=== PATIENT | female | born 1955 | race Caucasian/White ===

== ENCOUNTER → 2016-11-19 | Outpatient (CLI) | payer OTHER ==
[~2016-11-19] VITALS: Ht 172.7 cm; Wt 82.0 kg
[~2016-11-19] MED LIST: ADVA100A INH; ALBUAER3 INH; INSULIN HUMAN REGULAR 1,000 UNITS/10 ML VIAL SQ PRN; LACTATED RINGER'S 1000 ML IV SCH; LISI10TA3 PO; METOPROLOL TARTRATE 25 MG TAB PO PRN; MULTTAB67 PO; PROPOFOL 200 MG/20 ML AMP IV ONE; ROSU5 PO; SODIUM CHLORID 0.9% 500 ML IV SCH
[2016-11-19 09:23] VITALS: BP 137/81; PULSE 58; RESP 16; TEMP 98.1; O2SAT 95
[2016-11-19 12:40] VITALS: TEMP 97.6
[2016-11-19 13:00] VITALS: BP 111/66; PULSE 63; RESP 16; O2SAT 95
--- NOTE | 2016-11-19 18:15 | EKG ---
Date Performed: 11/19/2016 Time Performed: 09:46:22 PTAGE: 60 years EKG: SINUS BRADYCARDIA SEPTAL MYOCARDIAL INFARCTION , OF INDETERMINATE AGE When compared to prev ious tracing, sinus rate is slower. ABNORMAL ECG PREVIOUS TRACING : 08/09/2007 07.33 DOCTOR: Dev Guevara Interpretating Date/Time 11/19/2016 18:13:38
== END ==
LOC: HEND 08:33
PROVIDERS: ATTEND Internal Medicine Gastroenterology
DX: Z12.11 Encounter for screening for malignant neoplasm of colon (principal); Z80.0 Family history of malignant neoplasm of digestive organs; K57.30 Diverticulosis of large intestine without perforation or abscess without bleeding; K64.4 Residual hemorrhoidal skin tags; K64.8 Other hemorrhoids; K20.9 Esophagitis, unspecified; K44.9 Diaphragmatic hernia without obstruction or gangrene; R10.13 Epigastric pain; R68.81 Early satiety; K76.89 Other specified diseases of liver; K59.09 Other constipation; R14.0 Abdominal distension (gaseous); I10 Essential (primary) hypertension
CPT/HCPCS: 43239; 45378; 88305; 88312; 93005; 99156; 99157; J7120

== ENCOUNTER → 2017-01-27 | Outpatient (CLI) | payer OTHER ==
[~2017-01-27] MED LIST changes: -INSULIN HUMAN REGULAR 1,000 UNITS/10 ML VIAL SQ PRN; -LACTATED RINGER'S 1000 ML IV SCH; -METOPROLOL TARTRATE 25 MG TAB PO PRN; -PROPOFOL 200 MG/20 ML AMP IV ONE; -SODIUM CHLORID 0.9% 500 ML IV SCH
[2017-01-27 08:31] LABS: AUTOMATED NEUTROPHIL # 2.3 TH/MM3 (1.8-7.7); BASOPHIL % 0.6 % (0.0-2.0); EOSINOPHIL # 0.1 TH/MM3 (0-0.4); EOSINOPHIL % 1.5 % (0.0-4.0); HEMATOCRIT 37.1 % (35.0-46.0); HEMO FLAGS DIFF FINAL; LYMPH % 33.6 % (9.0-44.0); LYMPHOCYTE # 1.4 TH/MM3 (1.0-4.8); MEAN CELL VOLUME 86.8 FL (80.0-100.0); MEAN CORPUSCULAR HEMOGLOBIN 29.8 PG (27.0-34.0); MEAN CORPUSCULAR HGB CONC 34.3 % (32.0-36.0); MONO % 11.1 % (0.0-8.0); NEUT % 53.2 % (16.0-70.0); PLATELET COUNT 177 TH/MM3 (150-450); RED BLOOD COUNT 4.27 MIL/MM3 (4.00-5.30); RED CELL DISTRIBUTION WIDTH 12.7 % (11.6-17.2); WHITE BLOOD COUNT 4.3 TH/MM3 (4.0-11.0)
[2017-01-27 09:09] LABS: ALKALINE PHOSPHATASE 46 U/L (45-117); ALT (GPT) 21 U/L (10-53); ANION GAP 7 MEQ/L (5-15); AST (GOT) 16 U/L (15-37); BICARBONATE 29.8 MEQ/L (21.0-32.0); BLOOD UREA NITROGEN 15 MG/DL (7-18); CHLORIDE 101 MEQ/L (98-107); GLOMERULAR FILTRATION RATE 87 ML/MIN (>89); GLUCOSE,FASTING 91 MG/DL (74-99); HDL CHOLESTEROL 81.4 MG/DL (40.0-60.0); LDL CHOLESTEROL 91 MG/DL (0-99); POTASSIUM 4.2 MEQ/L (3.5-5.1); SODIUM (NA) 138 MEQ/L (136-145); TOTAL BILIRUBIN ADULT 0.6 MG/DL (0.2-1.0)
== END ==
LOC: CLAB 08:04
PROVIDERS: ATTEND Family Medicine
DX: E78.5 Hyperlipidemia, unspecified (principal); I10 Essential (primary) hypertension; D72.819 Decreased white blood cell count, unspecified
CPT/HCPCS: 36415; 80053; 80061; 84436; 84443; 85025

== ENCOUNTER → 2017-02-04 | Outpatient (CLI) | payer OTHER ==
--- NOTE | 2017-02-16 08:51 | RSPPFT ---
DATE OF PROCEDURE: 02/04/17 COMMENTS: Spirometry with FVC of 2.9, FEV1 of 2.0 FEV1/FVC ratio at 68%. Slow vital capacity is 83% of predicted. TLC is 97%. Diffusion capacity is normal. IMPRESSION: 1. Moderate airways obstruction. 2. Non-significant response to acutely inhaled bronchodilator. 3. No evidence of airways restriction. 4. Normal diffusion capacity.
== END ==
LOC: HRSP 08:05
PROVIDERS: ATTEND Family Medicine
DX: J45.909 Unspecified asthma, uncomplicated (principal)
CPT/HCPCS: 94060; 94726; 94729

== ENCOUNTER → 2017-07-21 | Outpatient (CLI) | payer OTHER ==
[2017-07-21 09:19] LABS: AUTOMATED NEUTROPHIL # 2.1 TH/MM3 (1.8-7.7); BASOPHIL % 0.8 % (0.0-2.0); EOSINOPHIL # 0.1 TH/MM3 (0-0.4); EOSINOPHIL % 2.4 % (0.0-4.0); HEMATOCRIT 39.3 % (35.0-46.0); HEMO FLAGS DIFF FINAL; LYMPH % 36.6 % (9.0-44.0); LYMPHOCYTE # 1.6 TH/MM3 (1.0-4.8); MEAN CELL VOLUME 89.1 FL (80.0-100.0); MEAN CORPUSCULAR HEMOGLOBIN 30.1 PG (27.0-34.0); MEAN CORPUSCULAR HGB CONC 33.8 % (32.0-36.0); MONO % 11.4 % (0.0-8.0); NEUT % 48.8 % (16.0-70.0); PLATELET COUNT 179 TH/MM3 (150-450); RED BLOOD COUNT 4.42 MIL/MM3 (4.00-5.30); RED CELL DISTRIBUTION WIDTH 12.8 % (11.6-17.2); WHITE BLOOD COUNT 4.3 TH/MM3 (4.0-11.0)
[2017-07-21 10:45] LABS: ANION GAP 6 MEQ/L (5-15); AST (GOT) 15 U/L (15-37); BICARBONATE 29.3 MEQ/L (21.0-32.0); BLOOD UREA NITROGEN 17 MG/DL (7-18); CHLORIDE 101 MEQ/L (98-107); GLOMERULAR FILTRATION RATE 82 ML/MIN (>89); GLUCOSE,FASTING 82 MG/DL (74-99); POTASSIUM 3.8 MEQ/L (3.5-5.1); SODIUM (NA) 136 MEQ/L (136-145)
[2017-07-21 10:59] LABS: ALKALINE PHOSPHATASE 44 U/L (45-117); ALT (GPT) 24 U/L (10-53); HDL CHOLESTEROL 91.6 MG/DL (40.0-60.0); LDL CHOLESTEROL 97 MG/DL (0-99); TOTAL BILIRUBIN ADULT 0.6 MG/DL (0.2-1.0)
[2017-07-21 12:11] LABS: HEMOGLOBIN A1a 1.1 %; HEMOGLOBIN A1b 1.5 %; HEMOGLOBIN Ao 86.4 %; HEMOGLOBIN LA1C 1.7 %; HEMOGLOBIN P3 3.4 %
[2017-07-22 23:53] LABS: THYROGLOB ABS LESS THAN 1 IU/mL (< OR = 1)
== END ==
LOC: CLAB 08:25
PROVIDERS: ATTEND Family Medicine
DX: K59.09 Other constipation (principal); E78.5 Hyperlipidemia, unspecified; J39.2 Other diseases of pharynx; K57.90 Diverticulosis of intestine, part unspecified, without perforation or abscess without bleeding; E07.9 Disorder of thyroid, unspecified; I10 Essential (primary) hypertension; Z00.00 Encounter for general adult medical examination without abnormal findings; Z51.81 Encounter for therapeutic drug level monitoring
CPT/HCPCS: 36415; 80053; 80061; 83036; 84443; 85025; 86376; 86800

== ENCOUNTER 2017-10-24 16:01 | Emergency (ER) | payer OTHER ==
[~2017-10-24] VITALS: Ht 172.7 cm; Wt 80.0 kg
[2017-10-24 16:03] VITALS: BP 131/87; PULSE 89; RESP 18; TEMP 98.8; O2SAT 90
[2017-10-24 16:25] VITALS: BP 142/92; PULSE 84; RESP 24; O2SAT 100
[2017-10-24] MEDS ORDERED: methylPREDNISolone SOD SUCC 125 MG/2 ML VIAL IV PUSH ONE (16:30)
[2017-10-24 16:58] LABS: AUTOMATED NEUTROPHIL # 2.4 TH/MM3 (1.8-7.7); BASOPHIL % 0.4 % (0.0-2.0); EOSINOPHIL % 1.4 % (0.0-4.0); HEMATOCRIT 41.8 % (35.0-46.0); HEMOGLOBIN 14.2 GM/DL (11.6-15.3); LYMPH % 16.8 % (9.0-44.0); LYMPHOCYTE # 0.6 TH/MM3 (1.0-4.8); MEAN CELL VOLUME 88.6 FL (80.0-100.0); MEAN CORPUSCULAR HEMOGLOBIN 30.1 PG (27.0-34.0); MONO % 11.3 % (0.0-8.0); MONOCYTE # 0.4 TH/MM3 (0-0.9); NEUT % 70.1 % (16.0-70.0); PLATELET COUNT 122 TH/MM3 (150-450); RED BLOOD COUNT 4.72 MIL/MM3 (4.00-5.30); RED CELL DISTRIBUTION WIDTH 12.7 % (11.6-17.2); WHITE BLOOD COUNT 3.4 TH/MM3 (4.0-11.0)
[2017-10-24] MEDS: RESP: ALBUTEROL 2.5 MG/IPRATROPIUM 0.5 MG NEB (SCH) INH ×2 (16:58→16:59)
[2017-10-24 17:13] LABS: BICARBONATE 27.1 MEQ/L (21.0-32.0); CALCIUM 8.9 MG/DL (8.5-10.1); CREATININE 0.64 MG/DL (0.50-1.00)
--- NOTE | 2017-10-24 17:13 | RADRPT ---
EXAM DATE/TIME: 10/24/2017 16:33 [facility] COMPARISON: CHEST PA & LAT, June 02, 2015, 15:50. INDICATIONS : Cold and flu like symptoms for five days. MEDICAL HISTORY : Hypertension. SURGICAL HISTORY : None. ENCOUNTER: Initial ACUITY: 4 - 6 days PAIN SCORE: 0/10 LOCATION: Bilateral chest FINDINGS: The lungs are clear without infiltrate, nodule, or mass. There is no appreciable pleural effusion fo r technique. Heart and mediastinum are unremarkable. CONCLUSION: No acute cardiopulmonary disease. Dona Hart MD on October 24, 2017 at 17:11 Board Certified Radiologist. This report was verified electronically.
--- NOTE | 2017-10-24 17:58 | PD ---
HPI Chief Complaint: Respiratory Symptoms Time Seen by Provider: 16:14 Travel History International Travel<30 days: No Contact w/Intl Traveler<30days: No Traveled to known affect area: No History of Present Illness HPI 61-year-old female that presents to the ED for evaluation of upper respiratory infection with shortness of breath. Per patient she has a history of asthma. He takes inhalers for this. It's been a while since she's been having to use inhalers but she has been using that for the past 4 days secondary to the symptoms. Per patient she's been feeling short of breath with exertion. She states that he started with allergy like symptoms. Per patient has not improved and she has a productive cough. She states that inhaler helps but not enough. She has not taken any steroids for this. She denies any smoking. No chest pain. Been taking OTC meds with some relief. She works the oncology. States having some fevers intermittently. She got her flu shot this year. Denies any recent travel. No other medical issues at this time. PFSH Past Medical History Asthma: Yes Cancer: Yes (SKIN) Cardiovascular Problems: Yes (HTN) High Cholesterol: Yes Diabetes: No Diminished Hearing: No Endocrine: No Genitourinary: No Hepatitis: No Hiatal Hernia: Yes Hypertension: Yes Immune Disorder: No Musculoskeletal: No Neurologic: No Psychiatric: No Reproductive: No Respiratory: Yes (ASTHMA ) Thyroid Disease: No Menopausal: Yes : 4 Para: 3 : 1 Tubal Ligation: Yes Past Surgical History AICD: No Body Medical Devices: RIGHT BREAST PROSTH. Eye Surgery: Yes (BILAT. BLEPH.) Genitourinary Surgery: Yes (RIGHT BREAST IMPLANT) Joint Replacement: No Oral Surgery: Yes (RHINOPLASTY) Pacemaker: No Thoracic Surgery: Yes (RIGHT BREAST PROSTH.) Social History Alcohol Use: Yes (OCC) Tobacco Use: No Substance Use: No Allergies-Medications (Allergen,Severity, Reaction): Coded Allergies: No Known Allergies (Verified Adverse Reaction, Unknown, 10/24/17) Reported Meds & Prescriptions Reported Meds & Active Scripts Active Reported Lisinopril 10 Mg Tab 20 Mg PO DAILY Multiple Vitamin 1 Tab 1 Tab PO DAILY Advair Diskus Inh (Fluticasone-Salmeterol Inh) 100-50 Mcg/Blist Aer 1 Puff INH BID Rinse mouth after use. Proair Hfa 8.5 GM Inh (Albuterol Sulfate) 90 Mcg/Act Aer 1 Puff INH Q4H PRN 108 mcg/actuation Crestor (Rosuvastatin Calcium) 5 Mg Tab 5 Mg PO DAILY Review of Systems Except as stated in HPI: all other systems reviewed are Neg Physical Exam Narrative GENERAL: SKIN: Warm and dry. HEAD: Atraumatic. Normocephalic. EYES: Pupils equal and round. No scleral icterus. No injection or drainage. ENT: No nasal bleeding or discharge. Mucous membranes pink and moist. Tongue is midline. No uvula deviation. TMs are clear without sign of infection or perforation. No meningeal signs. No lymphadenopathy. Nostril patent with clear mucus noted. No sinus tenderness noted. NECK: Trachea midline. No JVD. CARDIOVASCULAR: Regular rate and rhythm. No murmurs, S3, S4. RESPIRATORY: No accessory muscle use. Minor wheezing her in the lower lung bailey. Breath sounds equal bilaterally. GASTROINTESTINAL: Abdomen soft, non-tender, nondistended. Hepatic and splenic margins not palpable. MUSCULOSKELETAL: Extremities without clubbing, cyanosis, or edema. No obvious deformities. Full range of motion of the upper and lower extremities bilaterally. 2+ pulses bilaterally. NEUROLOGICAL: Awake and alert. No obvious cranial nerve deficits. Motor grossly within normal limits. Five out of 5 muscle strength in the arms and legs. Normal speech. PSYCHIATRIC: Appropriate mood and affect; insight and judgment normal. Data Data Last Documented VS Vital Signs Date Time Temp Pulse Resp B/P (MAP) Pulse Ox O2 Delivery O2 Flow Rate FiO2 10/24/17 16:43 97 Nasal Cannula 2.00 10/24/17 16:25 (102) 10/24/17 16:25 84 24 10/24/17 16:03 98.8 Orders Orders Basic Metabolic Panel (Bmp) (10/24/17 16:19) Complete Blood Count With Diff (10/24/17 16:19) Chest, Single Ap (10/24/17 16:19) Ecg Monitoring (10/24/17 16:19) Iv Access Insert/Monitor (10/24/17 16:19) Oximetry (10/24/17 16:19) Oxygen Administration (10/24/17 16:19) Methylprednisolone So Succ Inj (Solumedr (10/24/17 16:30) Albuterol-Ipratropium Neb (Duoneb Neb) (10/24/17 16:30) Influenzae A/B Antigen (10/24/17 16:19) Labs Laboratory Tests Test 10/24/17 16:40 White Blood Count 3.4 TH/MM3 Red Blood Count 4.72 MIL/MM3 Hemoglobin 14.2 GM/DL Hematocrit 41.8 % Mean Corpuscular Volume 88.6 FL Mean Corpuscular Hemoglobin 30.1 PG Mean Corpuscular Hemoglobin Concent 34.0 % Red Cell Distribution Width 12.7 % Platelet Count 122 TH/MM3 Mean Platelet Volume 8.0 FL Neutrophils (%) (Auto) 70.1 % Lymphocytes (%) (Auto) 16.8 % Monocytes (%) (Auto) 11.3 % Eosinophils (%) (Auto) 1.4 % Basophils (%) (Auto) 0.4 % Neutrophils # (Auto) 2.4 TH/MM3 Lymphocytes # (Auto) 0.6 TH/MM3 Monocytes # (Auto) 0.4 TH/MM3 Eosinophils # (Auto) 0.0 TH/MM3 Basophils # (Auto) 0.0 TH/MM3 CBC Comment DIFF FINAL Differential Comment Blood Urea Nitrogen 10 MG/DL Creatinine 0.64 MG/DL Random Glucose 106 MG/DL Calcium Level 8.9 MG/DL Sodium Level 138 MEQ/L Potassium Level 4.0 MEQ/L Chloride Level 104 MEQ/L Carbon Dioxide Level 27.1 MEQ/L Anion Gap 7 MEQ/L Estimat Glomerular Filtration Rate 94 ML/MIN MDM Medical Decision Making Medical Screen Exam Complete: Yes Emergency Medical Condition: Yes Medical Record Reviewed: Yes Interpretation(s) Flu positive. CBC & BMP Diagram 10/24/17 16:40 Calcium Level 8.9 Last Impressions Chest X-Ray 10/24/17 1619 Signed Impressions: Service Date/Time: Tuesday, October 24, 2017 16:33 - CONCLUSION: No acute cardiopulmonary disease. Dona Hart MD Differential Diagnosis Asthma exacerbation versus asthma versus influenza versus pneumonia versus bronchitis Narrative Course 61-year-old female that presents to the ED for evaluation of upper respiratory infection and shortness of breath. Patient was properly examined and was found to have signs and symptoms consistent with appears to be possible infection. She does appear to have some asthma symptoms. Initially in triage she was found to have a O2 of 90. Labs and imaging were ordered. She was put on oxygen. Labs and imaging were essentially unremarkable other than for positive for flu. She was given breathing treatments here with some relief of her symptoms. She feels improved. I had the patient do a walking test and patient did well with a good saturation of oxygen as well as feeling improved. At this time patient is agreeable with outpatient treatment. Case discussed with my attending Dr. Keller agrees with this. Patient will be sent home with prescriptions for inhaler, nebulizer medication and steroids. Told to follow closely with PCP. See ED if worsening symptoms. Diagnosis Primary Impression: Influenza B Additional Impression: Asthma exacerbation Qualified Codes: J45.31 - Mild persistent asthma with (acute) exacerbation Patient Instructions: General Instructions Additional Instructions: Motrin and Tylenol for pain and fever. You can use [id number] antihistamine as well as well as Mucinex as needed for runny nose and congestion. Cough drops for cough as needed. Drink plenty of fluids. Follow-up with PCP. See ED for worsening symptoms. Med/Other Pt SpecificInfo: Prescription(s) given Scripts Oseltamivir (Tamiflu) 75 Mg Cap 75 MG PO DAILY for Mgmt Viral Infection for 5 Days, #5 CAP 0 Refills Prov: Kenya Keller MD 10/24/17 Albuterol Neb (Albuterol Neb) 2.5 Mg/3 Ml Neb 2.5 MG NEB Q4HR NEB Y for SHORTNESS OF BREATH, #60 NEBULE 0 Refills Prov: Kenya Keller MD 10/24/17 Prednisone (Prednisone) 20 Mg Tab 20 MG PO BID for 5 Days, #10 TAB 0 Refills Prov: Kenya Keller MD 10/24/17 Albuterol 8.5 GM Inh (Proair Hfa 8.5 GM Inh) 90 Mcg/Act Aer 1 PUFF INH Q4H Y for SHORTNESS OF BREATH, #1 INHALER 0 Refills 108 mcg/actuation Prov: Kenya Keller MD 10/24/17 Disposition: 01 DISCHARGE HOME Condition: Stable Travis Haque Oct 24, 2017 17:58
[2017-10-24] MEDS ORDERED: PRED20 PO (18:01)
[2017-10-24] MEDS ORDERED: ALBU0.08 NEB (18:01)
[2017-10-24] MEDS ORDERED: OSEL75 PO (18:01)
[2017-10-24] MEDS ORDERED: ALBUAER3 INH (18:01)
== END 2017-10-24 18:36 | disposition home or self-care (01) ==
LOC: NEPC 16:01
DX: J11.1 Influenza due to unidentified influenza virus with other respiratory manifestations (principal); J45.901 Unspecified asthma with (acute) exacerbation; I10 Essential (primary) hypertension; E78.00 Pure hypercholesterolemia, unspecified; Z79.51 Long term (current) use of inhaled steroids; Z79.899 Other long term (current) drug therapy
CPT/HCPCS: 71010; 80048; 85025; 87804; 94664; 96374; 99284; J2930

== ENCOUNTER → 2018-02-09 | Outpatient (CLI) | payer OTHER ==
[~2018-02-09] MED LIST changes: +ALBU0.08 NEB; +OSEL75 PO; +PRED20 PO
[2018-02-09 08:18] LABS: AUTOMATED NEUTROPHIL # 1.9 TH/MM3 (1.8-7.7); BASOPHIL % 0.8 % (0.0-2.0); EOSINOPHIL # 0.1 TH/MM3 (0-0.4); EOSINOPHIL % 2.5 % (0.0-4.0); HEMATOCRIT 37.9 % (35.0-46.0); LYMPH % 43.4 % (9.0-44.0); LYMPHOCYTE # 1.8 TH/MM3 (1.0-4.8); MEAN CELL VOLUME 87.6 FL (80.0-100.0); MEAN CORPUSCULAR HEMOGLOBIN 30.1 PG (27.0-34.0); MEAN CORPUSCULAR HGB CONC 34.4 % (32.0-36.0); MEAN PLATELET VOLUME 7.8 FL (7.0-11.0); MONO % 9.4 % (0.0-8.0); MONOCYTE # 0.4 TH/MM3 (0-0.9); NEUT % 43.9 % (16.0-70.0); PLATELET COUNT 188 TH/MM3 (150-450); RED BLOOD COUNT 4.33 MIL/MM3 (4.00-5.30); RED CELL DISTRIBUTION WIDTH 12.8 % (11.6-17.2); WHITE BLOOD COUNT 4.2 TH/MM3 (4.0-11.0)
[2018-02-09 08:47] LABS: ALBUMIN 4.2 GM/DL (3.4-5.0); ALT (GPT) 23 U/L (10-53); AST (GOT) 15 U/L (15-37); BICARBONATE 30.1 MEQ/L (21.0-32.0); BLOOD UREA NITROGEN 18 MG/DL (7-18); CALCIUM 9.3 MG/DL (8.5-10.1); CHLORIDE 104 MEQ/L (98-107); CHOLESTEROL 186 MG/DL (120-200); CREATININE 0.68 MG/DL (0.50-1.00); GLOMERULAR FILTRATION RATE 87 ML/MIN (>89); GLUCOSE,FASTING 82 MG/DL (74-99); SODIUM (NA) 140 MEQ/L (136-145)
[2018-02-09 08:57] LABS: ALKALINE PHOSPHATASE 43 U/L (45-117); CHOLESTEROL/ HDL RATIO 2.59 RATIO; HDL CHOLESTEROL 71.6 MG/DL (40.0-60.0); LDL CHOLESTEROL 100 MG/DL (0-99); TOTAL BILIRUBIN ADULT 0.5 MG/DL (0.2-1.0); TOTAL PROTEIN 7.1 GM/DL (6.4-8.2); TRIGLYCERIDES 71 MG/DL (42-150)
== END ==
LOC: CLAB 07:53
PROVIDERS: ATTEND Family Medicine
DX: E78.5 Hyperlipidemia, unspecified (principal); I10 Essential (primary) hypertension; E03.9 Hypothyroidism, unspecified; D70.9 Neutropenia, unspecified
CPT/HCPCS: 36415; 80053; 80061; 84436; 84443; 85025